=== PATIENT | male | born 1970 | race Two or more races ===

== ENCOUNTER 2017-03-16 08:55 | Outpatient (RCR) | payer MEDICAID, SELFPAY ==
--- NOTE | 2017-03-17 12:03 | HP.PTEVAL_ITS ---
Patient's Visit Information MAGALY MYRICK is a 46 year old M referred to Physical Therapy by Murray EGAN with a diagnosis of R knee pain. Date of Evaluation: 03/16/17 Physical Therapist: Niranjan St - Visit Plan Frequency: 2x /Week Duration: 4 Weeks Plan: Start with end range of motion mobility, focus on extension. Quad, glute med, HS strengthening. Progress to functional stability and strengthening exercises as tolerated. May use IFC and ice to reduce symptoms. - Subjective Subjective: Pt. is here today for his initial evaluation wtih diagnosis of R knee pain. He reports having pain since his teens, but really had issues whiel at gym approximately 8months ago. He was on completing abdominal exercises on and decline bench then attempted to lift his whole body off the bench, a type of quad strengthening exercise in appears. Pt. has had intermittent increase in symptoms since. Increases pain: squating, running, walking, climbing ladders, most LB exercises. Decreases pain: wearing knee stabilizing braces, and rest. 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 He reports by the end of his work day he has intense pain and can barely make it up and down his ladder. Pt has a history of non-hodgkin's lymphoma ~6 years ago as well. Pt. denies his knee giving out on him, but does hinder him with gym exercises, recreational walking and with work activies. He denies N/T of either LE. He is hopeful to decrease pain in order to get back to all recreational and work activities without limitations. - Pain R medial knee Pain Intensity (Out of 10): 3 Pain Intensity Range: 1, 6 R lateral knee Pain Intensity (Out of 10): 2 Pain Intensity Range: 1, 5 - Objective POSTURE: Pt. has no knee valgus/varus positioning, he does lack TKE on R side, but has normal wt. shift between bilateral LEs. Pt. reports increased pain with attempts to achieve TKE on RLE. PALPATION: Pt. has increased pain at medial joint line, not at MCL though. Pt. does have lateral R knee pain at joint line as well with firm palpation. No popliteal fossa pain, not HS insertional pain or gastroc insertional pain. No patellar or quad tendon pain. Pt. does have a small amout of edema, non pitting throughout R knee joint. NEUROLOGICAL: Pt. has 2+ patellar and achilles DTR bilaterally. Pt. has normal sensation to light and sharp touch of bilateral LEs. Pt. is able to rise on heels and toes without issues, LOB or signs of visible weakness. ROM: L knee 0-0-136deg. R knee 0-3- 136 deg. Pt. has increased pain with TKE with over pressure and end range knee flexion with over pressure. Pt. has normal hip ROM, but does have tight HS bilaterally. MMT: LLE- ankle/knee 5/5 throughout; hip- flexion 5/5, abd 5-/5, ext 5-/5. RLE- ankle- 5/5 throughout; knee- ext 5-/5 mild increase NW, flexion 5-/5 mild increase NW; hip- 5-/5 throughout no increase in symptoms. Core strength- fair. GAIT: pt. ambulates without AD he does report increased pain during R stance phase. Pt. lacks TKE during stance phase of RLE, he does have proper heel strike with initial contact and proper rocker moments of bilateral ankle/feet. STAIRS: Pt. is able to negotiate without HR, but does have increased pain with ascending/descending on RLE loading phases. - Special Tests R Knee Liam - Meniscus: Negative R Knee Apley - Meniscus: Positive R Knee Disco Test - Meniscus: Positive R Knee Radha - ACL: Negative R Knee Posterior Drawer - PCL: Negative R Knee Valgus - MCL: Negative R Knee Varus - LCL: Negative R Knee Patellar Apprehension - PFS: Negative Comments: Apleys + with lateral compression with increased flexion, disco + laterally - Goals Goal 1:: Pt. to be I with HEP. Goal Time Frame: 4-6 Weeks Goal 2:: Pt. to have improved ROM of R knee to 0-0-138deg without pain throughout full motion. Goal Time Frame: 4-6 Weeks Goal 3:: Pt. to negotiate steps with reciprocal pattern without HR without increase in symptoms. Goal Time Frame: 4-6 Weeks Goal 4:: Pt. to have improved RLE strength by 1/2 grade of all effected musculature reducing stress applied to R knee with all work and recreational activities. Goal Time Frame: 4-6 Weeks Goal 5:: Pt. to resume all work activities with 0-1/10 pain in R knee Goal Time Frame: 4-6 Weeks - Rehabilitation Potential Physical Therapy Diagnosis: Pt. has signs and symptoms consistent with R knee pain. He has negative ligament testing, but does have increased knee pain with end range flexion and ext with over pressure. He also has increased pain with disco testing during ~45 deg of flexion to 60deg of flexion, mostly at lateral aspect of knee. Pt. has some + signs of meniscal involvement and would benefit from PT to increase stability at knee/hip, improve ROM and reduce pain allowing for return to recreational and work activities without limitations. Rehabilitation Potential: Good - Anticipated Interventions Patient/Client Instruction: Educate patient on: Condition, Plan of Care, Risk Factors, Benefits of Fitness Program For the Purpose of:: To improve safety, To improve health and function, To foster healthy habits, To improve decision making, To facilitate caregiver knowledge, To improve self management, To prevent re-injury, To improve ability to perform tasks related to life management, To improve tolerance to ADL's Therapeutic Exercise to Include: Strength training, Power training, Endurance training, Balance training, Postural training, Flexibilty training, Passive ROM , Active ROM, Dynamic Lumbar Stabilization For the Purpose of:: To decrease pain, To increase ROM, To improve nutrient delivery to tissue, To increase oxygenation perfusion, To improve muscle performance and motor function, To improve gait and locomotor functions, To improve health of tissue, To decrease soft tissue restriction, To increase flexibility/ROM, To improve endurance, To improve balance Manual Therapy Techniques to Include: Mobilization, Passive ROM, Functional dry needling For the Purpose of:: To decrease pain, To increase ROM, To improve nutrient delivery to tissue, To increase oxygenation perfusion IF ES: Yes Cryotherapy (ice pack, ice massage): Yes Ultrasound (thermal/non thermal): Yes For the Purpose of:: To decrease pain, To decrease swelling/inflammation, To increase ROM Thank you for the opportunity to evaluate your patient. For Medicare and Medicare HMO plans, please review the plan of care and approve it. It will need to be FAXED BACK to us at [phone] for Medicare purposes. Please let me know if there are questions or concerns regarding this plan of care. Physician Signature: Date:
--- NOTE | 2017-09-16 18:41 | HP.PTDCNRP_ITS ---
HP - Discharge Summary (1) - Patient Information MAGALY MYRICK was seen in my office for initial evaluation on 03/16/17. The following Plan of Care was established for this patient: Initial Frequency: 2x /Week Initial Duration: 4 Weeks - Anticipated Interventions Patient/Client Instruction: Educate patient on: Condition, Plan of Care, Risk Factors, Benefits of Fitness Program For the Purpose of:: To improve safety, To improve health and function, To foster healthy habits, To improve decision making, To facilitate caregiver knowledge, To improve self management, To prevent re-injury, To improve ability to perform tasks related to life management, To improve tolerance to ADL's Therapeutic Exercise to Include: Strength training, Power training, Endurance training, Balance training, Postural training, Flexibilty training, Passive ROM , Active ROM, Dynamic Lumbar Stabilization For the Purpose of:: To decrease pain, To increase ROM, To improve nutrient delivery to tissue, To increase oxygenation perfusion, To improve muscle performance and motor function, To improve gait and locomotor functions, To improve health of tissue, To decrease soft tissue restriction, To increase flexibility/ROM, To improve endurance, To improve balance Manual Therapy Techniques to Include: Mobilization, Passive ROM, Functional dry needling For the Purpose of:: To decrease pain, To increase ROM, To improve nutrient delivery to tissue, To increase oxygenation perfusion IF ES: Yes Cryotherapy (ice pack, ice massage): Yes Ultrasound (thermal/non thermal): Yes For the Purpose of:: To decrease pain, To decrease swelling/inflammation, To increase ROM This patient was last seen in our office 03/16/17. Pertinent comments regarding their Physical therapy will appear below: Pt. was here for PT for his knee pain. He had his initial evaluation, but did not return for any subsequent visits. Pt. will be DC from PT at this point in time. At this point I will be discontinuing this patient from physical therapy. I would be happy to see this patient again in the future if found appropriate by the physician. Thank you! Niranjan St
== END 2017-03-16 19:00 | disposition home or self-care (01) ==
LOC: PT 08:55
PROVIDERS: Family Provider Family Medicine; PCP Family Medicine; Visit Provider Physician Assistant
DX: M25.561 Pain in right knee (principal)
CPT/HCPCS: 97110; 97161